=== PATIENT | male | born 1950 | race Caucasian/White ===

== ENCOUNTER → 2024-10-29 | Day surgery (SDC) | payer MEDICARE ==
[2024-10-23 13:00] LABS: BASOPHILS # (AUTO) 0.1 (0.0-0.1); BASOPHILS % 0.6 % (0.0-1.0); EOSINOPHILS # (AUTO) 0.3 (0.0-0.4); EOSINOPHILS % 2.9 % (0.0-6.0); HEMATOCRIT 42.1 % (38.2-49.6); HEMOGLOBIN 14.8 g/dL (14.0-18.0); LYMPHOCYTES # (AUTO) 2.4 (1.0-3.2); LYMPHOCYTES % 21.3 % (18.0-39.1); MEAN CORPUSCULAR HGB CONC 35.2 g/dL (31-35); MEAN CORPUSCULAR VOLUME 88.1 fL (81-99); MONOCYTES % 9.4 % (4.4-11.3); NEUTROPHILS # (AUTO) 7.2 (2.1-6.9); NEUTROPHILS % 65.3 % (38.7-80.0); PLATELET COUNT 345 x10e3/uL (140-360); RED BLOOD COUNT 4.78 x10e6/uL (4.3-5.7); RED CELL DISTRIBUTION WIDTH 12.6 % (11.7-14.4); WHITE BLOOD COUNT 11.08 x10e3/uL (4.8-10.8)
[2024-10-23 13:27] LABS: ANION GAP 13.9 mmol/L (8-16); CALCIUM 9.5 mg/dL (8.4-10.2); CREATININE, SERUM 1.2 mg/dL (0.72-1.25); POTASSIUM 3.9 mmol/L (3.5-5.1)
[~2024-10-29] MED LIST: ACETAMINOPHEN 1000 MG/100 ML 100 ML IV ONE; DEXAMETHASONE SOD PHOS INJ 4 MG/ML SDV ONE; EPHEDRINE SULFATE INJ 50 MG/ML VIAL ONE; FENTANYL CITRATE/PF 100MCG/2 ML INJ ONE; HYDROCODON-ACE1 EA11 PO; HYDROMORPHONE 2MG/ML ONE; LIDOCAINE HCL 2% LOCAL INJ 5 ML SDV VIAL INJ ONE; METOCLOPRAMIDE HCL 10 MG/2ML VIAL ONE; METOPROLOL-HCT1 EAC1 PO; ONDANSETRON HCL INJ 2MG/ML 2ML 2 MG/ML VIAL ONE; PROPOFOL IV EMULSION 10 MG/ML 20 ML VIAL ONE; SEVOFLURANE INHAL SOLN 250 ML PEN BTL ONE
[2024-10-29] MEDS: CEFAZOLIN SODIUM 2 GM ONE (06:02)
[2024-10-29] MEDS: LACTATED RINGER'S 1,000 ML ONE (06:02)
[2024-10-29 11:15] VITALS: TEMP 98.1
[2024-10-29 11:55] VITALS: BP 140/70; PULSE 78; RESP 16; O2SAT 97
== END | disposition home or self-care (01) ==
LOC: OR 05:23
PROVIDERS: ATTEND Surgery
DX: L73.2 Hidradenitis suppurativa (principal); I10 Essential (primary) hypertension; E66.3 Overweight; Z88.8 Allergy status to other drugs, medicaments and biological substances; Z01.810 Encounter for preprocedural cardiovascular examination; Z01.812 Encounter for preprocedural laboratory examination; Z01.818 Encounter for other preprocedural examination; Z79.899 Other long term (current) drug therapy; Z68.35 Body mass index [BMI] 35.0-35.9, adult; Z85.46 Personal history of malignant neoplasm of prostate
CPT/HCPCS: 11462; 15100; 15734; 36415; 71046; 80048; 85025; 88305; 93005; 99252; J0131; J1100; J1171; J2003; J2405; J2704; J2765; J3010; J7121; 88304

== ENCOUNTER 2024-11-11 07:30 | Outpatient (RCR) | payer MEDICARE ==
[~2024-11-11 07:30] MED LIST changes: -ACETAMINOPHEN 1000 MG/100 ML 100 ML IV ONE; -DEXAMETHASONE SOD PHOS INJ 4 MG/ML SDV ONE; -EPHEDRINE SULFATE INJ 50 MG/ML VIAL ONE; -FENTANYL CITRATE/PF 100MCG/2 ML INJ ONE; -HYDROMORPHONE 2MG/ML ONE; -LIDOCAINE HCL 2% LOCAL INJ 5 ML SDV VIAL INJ ONE; -METOCLOPRAMIDE HCL 10 MG/2ML VIAL ONE; -ONDANSETRON HCL INJ 2MG/ML 2ML 2 MG/ML VIAL ONE; -PROPOFOL IV EMULSION 10 MG/ML 20 ML VIAL ONE; -SEVOFLURANE INHAL SOLN 250 ML PEN BTL ONE
== END 2024-11-13 ==
LOC: WCC 07:30
PROVIDERS: ATTEND Plastic Surgery
DX: S71.102D Unspecified open wound, left thigh, subsequent encounter (principal); S31.104D Unspecified open wound of abdominal wall, left lower quadrant without penetration into peritoneal cavity, subsequent encounter; S31.109D Unspecified open wound of abdominal wall, unspecified quadrant without penetration into peritoneal cavity, subsequent encounter; S71.101D Unspecified open wound, right thigh, subsequent encounter

== ENCOUNTER 2025-03-03 09:26 | Outpatient (RCR) | payer MEDICARE | END 2025-03-10 07:49 | disposition home or self-care (01) | LOC: WCC 09:26 | PROVIDERS: ATTEND Plastic Surgery | DX: S81.802D Unspecified open wound, left lower leg, subsequent encounter (principal); B96.29 Other Escherichia coli [E. coli] as the cause of diseases classified elsewhere ==